=== PATIENT | female | born 1980 | race Hispanic/Latino ===

== ENCOUNTER 2020-05-11 05:46 | Inpatient (IN) | payer MEDICAID ==
[~2020-05-11] VITALS: Ht 167.6 cm; Wt 81.6 kg
[2020-05-11] MEDS ORDERED: LACTATED RINGERS 1000ML 1,000 ML IV PRN (06:15)
[2020-05-11] MEDS ORDERED: AMPICILLIN 2GM+NS 100ML 100 ML IV SCH (06:15)
[2020-05-11] MEDS ORDERED: LACTATED RINGERS 1000ML 1,000 ML IV ONE (06:28)
[2020-05-11] MEDS ORDERED: AMPICILLIN 2GM+NS 100ML 100 ML IV ONE (06:28)
[2020-05-11 06:32] LABS: APPEARANCE,URINE SL CLOUDY (CLEAR); BILIRUBIN,URINE NEGATIVE (NEGATIVE); COLOR,URINE YELLOW (YELLOW); GLUCOSE, URINE (UA) NEGATIVE (NEGATIVE); KETONES,URINE NEGATIVE (NEGATIVE); LEUKOCYTE ESTERASE ,URINE MODERATE (NEGATIVE); NITRATE,URINE NEGATIVE (NEGATIVE); OCCULT BLOOD,URINE SMALL (NEGATIVE); PROTEIN,URINE 30 mg/dL (NEGATIVE); UROBILINOGEN,URINE 0.2 mg/dL (0.2-1.0)
[2020-05-11 06:38] LABS: HEMATOCRIT 33.5 % (36-48); MEAN CORPUSCULAR HEMOGLOBIN 26.5 pg (27.0-33.0); MEAN CORPUSCULAR HGB CONC 32.2 g/dL (32.0-36.0); MEAN CORPUSCULAR VOLUME 82.1 fL (79-99); RED BLOOD CELL COUNT(AUTO) 4.08 MIL/uL (4.00-5.50); RED CELL DISTRIBUTION WIDTH 13.9 % (11.0-15.5); WHITE BLOOD COUNT (AUTO) 12.3 K/uL (4.8-10.8)
[2020-05-11 06:54] LABS: BACTERIA,URINE Many /HPF (None Seen); RBC,URINE 0-1 /HPF (0-1); SQUAMOUS EPITHELIAL CELL,UR Moderate /HPF (0-2)
[2020-05-11] MEDS ORDERED: OXYTOCIN-LR 20 UNITS/1000 ML 1,000 ML IV SCH (07:30)
[2020-05-11] MEDS ORDERED: NALOXONE HCL 0.4 MG/1 ML ML IV PRN (07:30)
[2020-05-11] MEDS ORDERED: MEPERIDINE-PF 50 MG/ML SYG IVP ONE (07:30)
[2020-05-11] MEDS ORDERED: EPHEDRINE SULFATE 50 MG/ML AMPULE IVP PRN ×2 (07:30→20:00)
[2020-05-11] MEDS ORDERED: LACTATED RINGERS 500 ML 500 ML IV PRN (07:30)
[2020-05-11] MEDS ORDERED: MEPERIDINE-PF 50 MG/ML SYG IVP SCH (07:45)
[2020-05-11] MEDS ORDERED: FENTANYL CITRATE PF 50 MCG/1 ML 2ML VIAL ONE (07:53)
[2020-05-11 09:57] LABS: RAPID PLASMA REAGIN NONREACTIVE (NONREACTIVE)
[2020-05-11] MEDS: AMPICILLIN 1GM+NS 50ML 50 ML IV SCH ×2 (10:27→15:13)
[2020-05-11] MEDS ORDERED: CEFAZOLIN SODIUM 1 GM VIAL IVP PRN (16:30)
[2020-05-11] MEDS ORDERED: LACTATED RINGERS 1000ML 1,000 ML IV SCH (16:30)
[2020-05-11] MEDS ORDERED: CALDOLOR 800MG+NS 250ML 250 ML IV PRN (16:30)
[2020-05-11] MEDS ORDERED: CEFAZOLIN SODIUM 1 GM VIAL ONE (16:47)
[2020-05-11] MEDS ORDERED: CALDOLOR 800MG+NS 250ML 250 ML IV ONE (16:47)
[2020-05-11] MEDS: PROMETHAZINE HCL 25 MG/ML 1ML AMPULE IM SCH (16:57)
[2020-05-11] MEDS ORDERED: CEFAZOLIN SODIUM 1 GM VIAL IVP ONE (17:21)
[2020-05-11] MEDS ORDERED: EPHEDRINE SULFATE 50 MG/ML AMPULE ONE (17:29)
[2020-05-11] MEDS ORDERED: ONDANSETRON 4MG INJ ONE (17:34)
[2020-05-11] MEDS ORDERED: METHYLERGONOVINE MALEATE 0.2 MG/1 ML ML ONE (17:44)
[2020-05-11] MEDS ORDERED: DEXTROSE 5 %-0.45 % NACL 1,000 ML IV PRN (18:30)
[2020-05-11] MEDS ORDERED: PROMETHAZINE HCL 25 MG/ML 1ML AMPULE IM PRN (18:30)
[2020-05-11] MEDS ORDERED: 0.9%NACL 10ML VIAL IVP PRN (18:30)
[2020-05-11] MEDS ORDERED: OXYTOCIN-LR 20 UNITS/1000 ML 1,000 ML IV PRN (18:30)
[2020-05-11] MEDS ORDERED: MORPHINE 2 MG SYG ONE ×2 (19:33→20:04)
[2020-05-11] MEDS ORDERED: NALOXONE HCL 0.4 MG/1 ML ML IVP PRN ×3 (20:00)
[2020-05-11] MEDS ORDERED: ONDANSETRON 4MG INJ IVP PRN (20:00)
[2020-05-11] MEDS ORDERED: DiphenhydrAMINE HCL 50 MG/ML VIAL IVP PRN (20:00)
[2020-05-11] MEDS ORDERED: MEPERIDINE-PF 25 MG/ML SYG ONE (21:00)
[2020-05-12] VITALS (8 sets, daily range): BP systolic 106–129; BP diastolic 58–78
[2020-05-12] MEDS: MEPERIDINE-PF 75 MG/ML SYG IM PRN ×2 (01:29→06:55)
[2020-05-12] MEDS: PROMETHAZINE HCL 25 MG/ML 1ML AMPULE IM SCH (01:42)
[2020-05-12] MEDS ORDERED: CALDOLOR 800MG+NS 250ML 250 ML IV SCH (02:30)
[2020-05-12] MEDS ORDERED: SIMETHICONE 80 MG TAB.CHEW PO PRN (02:45)
[2020-05-12] MEDS ORDERED: BISACODYL 10 MG SUPP.RECT RC PRN (02:45)
[2020-05-12] MEDS ORDERED: LANOLIN 30GM OINTMENT TP PRN (02:45)
[2020-05-12 06:30] LABS: HEMATOCRIT 26.7 % (36-48); MEAN CORPUSCULAR HEMOGLOBIN 27.1 pg (27.0-33.0); MEAN CORPUSCULAR HGB CONC 33.3 g/dL (32.0-36.0); MEAN CORPUSCULAR VOLUME 81.4 fL (79-99); RED BLOOD CELL COUNT(AUTO) 3.28 MIL/uL (4.00-5.50); RED CELL DISTRIBUTION WIDTH 14.1 % (11.0-15.5); WHITE BLOOD COUNT (AUTO) 17.8 K/uL (4.8-10.8)
[2020-05-12 07:15] LABS: HEPATITIS Bs ANTIGEN SCREEN P Negative (Negative)
[2020-05-12] MEDS: DOCUSATE SODIUM 100 MG CAP PO SCH ×2 (09:21→22:21)
[2020-05-12] MEDS: ACETAMINOPHEN 500 MG TABLET PO PRN ×2 (12:26→19:22)
[2020-05-12] MEDS ORDERED: IBUPROFEN 800 MG TAB ONE (15:44)
[2020-05-12] MEDS: IBUPROFEN 800 MG TAB PO SCH ×2 (15:45→22:20)
[2020-05-13] MEDS: ACETAMINOPHEN 500 MG TABLET PO PRN ×2 (02:54→09:08)
[2020-05-13 03:00] VITALS: BP 114/66
[2020-05-13] MEDS: IBUPROFEN 800 MG TAB PO SCH ×2 (06:03→13:26)
[2020-05-13 09:00] VITALS: BP 121/74
[2020-05-13] MEDS: DOCUSATE SODIUM 100 MG CAP PO SCH (09:05)
[2020-05-13 12:00] VITALS: BP 127/75
== END 2020-05-13 13:30 | disposition home or self-care (01) | DRG 540 ==
LOC: EDH 05:46 → OBSVTOIN 05:47 → LDH 05:47 → WSH 05-12 09:51
PROVIDERS: ADMIT Obstetrics & Gynecology; ATTEND Obstetrics & Gynecology
PROC: 10D00Z1 Extraction of Products of Conception, Low, Open Approach (ICD-10-PCS; principal; 2020-05-11 17:00)
DX: O62.2 Other uterine inertia (principal); O99.344 Other mental disorders complicating childbirth; O99.824 Streptococcus B carrier state complicating childbirth; D25.1 Intramural leiomyoma of uterus; O34.13 Maternal care for benign tumor of corpus uteri, third trimester; F41.9 Anxiety disorder, unspecified; Z37.0 Single live birth; Z3A.38 38 weeks gestation of pregnancy
CPT/HCPCS: 36415; 59510; 81001; 85027; 86592; 86701; 86850; 86900; 86901; 87088; 87340; 87390; A4314; A4344; A4606; G0378; J0290; J0690; J1741; J2175; J2210; J2405; J2550; J2590; J3010; J3490; J7120